=== PATIENT | female | born 1995 | race American Indian/Alaskan Native ===

== ENCOUNTER 2021-12-04 09:28 | Emergency (ER) | payer SELFPAY ==
[2021-12-04 11:11] LABS: Hematocrit 24.5 % (30.3-42.9); Hemoglobin 8.1 gm/dl (10.1-14.3); Mean Corpuscular HGB Conc 33 % (30-34); Mean Corpuscular Volume 109 fl (79-97); Platelet Count 340 K/mm3 (140-440); Red Blood Count 2.24 M/mm3 (3.65-5.03); Red Cell Distribution Width 17.7 % (13.2-15.2)
[2021-12-04 11:20] LABS: INR 0.9 (0.87-1.13)
[2021-12-04 11:21] LABS: Partial Thromboplastin Time 25.8 Sec. (24.2-36.6)
[2021-12-04] MEDS ORDERED: SODIUM CHLORIDE 0.9% 1000 ML 1,000 ML IV ONE (11:21)
[2021-12-04] MEDS ORDERED: MORPHINE 4 MG/1 ML INJ IV ONE (11:21)
[2021-12-04 11:30] LABS: Alanine Aminotransferase 14 units/L (7-56); Albumin 4.2 g/dL (3.9-5); Blood Urea Nitrogen 3 mg/dL (7-17); Calcium 9.2 mg/dL (8.4-10.2); Hemolysis Index 10
[2021-12-04 11:35] LABS: BUN/Creatinine Ratio 10
[2021-12-04 11:52] LABS: Basophils % (Manual) 0 % (0.0-1.8); Eosinophils % (Manual) 0 % (0.0-4.3); Total Cells Counted 100
[2021-12-04 11:53] LABS: Anisocytosis 1+; Ovalocytes Few; Platelet Estimate Consistent w Auto; Poikilocytosis 1+; Target Cells 1+; Tear Drop Cells Rare
--- NOTE | 2021-12-04 12:47 | XRay Report ---
XR chest routine 2V INDICATION / CLINICAL INFORMATION: Chest Pain COMPARISON: None available. FINDINGS: SUPPORT DEVICES: None. HEART / MEDIASTINUM: No significant abnormality. LUNGS / PLEURA: Bibasilar opacities. Costophrenic sulci are sharp. No pneumothorax. ADDITIONAL FINDINGS: Elevated left hemidiaphragm. No significant additional findings. IMPRESSION: 1. Bibasilar opacities likely subsegmental atelectasis or scarring. Signer Name: Dax Bhandari MD Signed: 12/04/2021 12:42 PM Workstation Name: [id number]
--- NOTE | 2021-12-04 13:16 | Emergency Department Report ---
ED General Adult HPI - General Chief complaint: Pain General Stated complaint: CHEST /SIDE PAIN Time Seen by Provider: 12/04/21 10:11 Source: patient Mode of arrival: Wheelchair Limitations: No Limitations - History of Present Illness Initial comments: This is a 26-year-old female nontoxic, well nourished in appearance, no acute signs of distress presents to the ED with c/o of generlized pains including chest x several day. Patient has history of sickle cell and stated these are the symptoms she gets during flareup. Patient denies any radiation of pain. Patient describes pain as aching. Patient denies any upper respiratory symptoms. Patient denies any shortness of breath, hemoptysis, fever, chills, nausea, vomiting, headache, stiff neck, numbness, tingling, abdominal pain. Patient denies pleuritic chest pain. Patient denies any recent travels or long car rides. Patient denies any recent surgeries or any sick contacts. Patient denies any drug allergies. -: days(s) Radiation: non-radiation Severity scale (0 -10): 8 Quality: aching Consistency: constant Improves with: none Worsens with: none Associated Symptoms: chest pain. denies: confusion, cough, diaphoresis, fever/chills, headaches, loss of appetite, malaise, nausea/vomiting, rash, seizure, shortness of breath, syncope, weakness Treatments Prior to Arrival: none - Related Data Previous Rx's Medication Instructions Recorded Last Taken Type Acetaminophen/Codeine [Tylenol 1 tab PO Q6H PRN #12 tab 12/04/21 Unknown Rx /Codeine # 3 tab] cephALEXin [Keflex] 500 mg PO Q6HR #28 capsule 12/04/21 Unknown Rx Allergies Allergy/AdvReac Type Severity Reaction Status Date / Time No Known Allergies Allergy Unverified 12/04/21 09:37 ED Review of Systems ROS: Stated complaint: CHEST /SIDE PAIN Other details as noted in HPI Constitutional: denies: chills, fever Eyes: denies: eye pain, eye discharge, vision change ENT: denies: ear pain, throat pain Respiratory: denies: cough, shortness of breath, wheezing Cardiovascular: denies: chest pain, palpitations Endocrine: no symptoms reported Gastrointestinal: denies: abdominal pain, nausea, diarrhea Genitourinary: denies: urgency, dysuria, discharge Musculoskeletal: arthralgia. denies: back pain, joint swelling, myalgia Skin: denies: rash, lesions Neurological: denies: headache, weakness, paresthesias Psychiatric: denies: anxiety, depression Hematological/Lymphatic: denies: easy bleeding, easy bruising ED Past Medical Hx - Past Medical History Previous Medical History?: Yes Hx Sickle Cell Disease: Yes - Medications Home Medications: Home Medications Medication Instructions Recorded Confirmed Last Taken Type Acetaminophen/Codeine [Tylenol 1 tab PO Q6H PRN #12 tab 12/04/21 Unknown Rx /Codeine # 3 tab] cephALEXin [Keflex] 500 mg PO Q6HR #28 capsule 12/04/21 Unknown Rx ED Physical Exam - General Limitations: No Limitations General appearance: alert, in no apparent distress - Head Head exam: Present: atraumatic, normocephalic - Eye Eye exam: Present: normal appearance - Neck Neck exam: Present: normal inspection, full ROM. Absent: lymphadenopathy - Respiratory Respiratory exam: Present: normal lung sounds bilaterally, chest wall tenderness. Absent: respiratory distress, wheezes, rales, rhonchi, stridor, accessory muscle use, decreased breath sounds, prolonged expiratory - Cardiovascular Cardiovascular Exam: Present: normal rhythm, normal heart sounds. Absent: irregular rhythm, systolic murmur, diastolic murmur, rubs, gallop - GI/Abdominal GI/Abdominal exam: Present: soft, normal bowel sounds. Absent: distended, tenderness, guarding, rebound, rigid - Extremities Exam Extremities exam: Present: normal inspection, full ROM, normal capillary refill. Absent: tenderness - Back Exam Back exam: Present: normal inspection, full ROM. Absent: tenderness, CVA tende rness (R), CVA tenderness (L), muscle spasm, paraspinal tenderness, vertebral tenderness, rash noted - Neurological Exam Neurological exam: Present: alert, oriented X3, normal gait - Psychiatric Psychiatric exam: Present: normal affect, normal mood - Skin Skin exam: Present: warm, dry, intact, normal color. Absent: rash ED Course Vital Signs 12/04/21 12/04/21 09:34 12:13 Temperature 98.7 F Pulse Rate 107 H Respiratory 16 20 Rate Blood Pressure 125/78 O2 Sat by Pulse 99 Oximetry - Reevaluation(s) Reevaluation #1: 12/04/21 13:16 Patient is speaking in full sentences with no signs of distress noted. - Consultations Consultation #1: 12/04/21 13:50 Patient has been consulted with Dr. Moran about patient history, physical exam, and labs/imaging results and agrees to ED plan of care and discharge plan of care. ED Medical Decision Making - Lab Data Result diagrams: 12/04/21 10:46 12/04/21 10:46 - EKG Data 12/04/21 14:03 Normal sinus rhythm at [address] or T wave abnormalities. Reviewed and signed by me. - Radiology Data [facility] [address] [place] [address] XRay Report Signed Patient: HASEEB LUGO MR#: [id number] : 1995 Acct:[id number] Age/Sex: 26 / F ADM Date: 12/04/21 Loc: ED Attending Dr: Ordering Physician: FELICITA MODI NP Date of Service: 12/04/21 Procedure(s): XR chest routine 2V Accession Number(s): [id number] cc: FELICITA MODI NP Fluoro Time In Minutes: XR chest routine 2V INDICATION / CLINICAL INFORMATION: Chest Pain COMPARISON: None available. FINDINGS: SUPPORT DEVICES: None. HEART / MEDIASTINUM: No significant abnormality. LUNGS / PLEURA: Bibasilar opacities. Costophrenic sulci are sharp. No pneumothorax. ADDITIONAL FINDINGS: Elevated left hemidiaphragm. No significant additional findings. IMPRESSION: 1. Bibasilar opacities likely subsegmental atelectasis or scarring. Signer Name: Dax Bhandari MD Signed: 12/04/2021 12:42 PM Workstation Name: [id number] Transcribed By: Dictated By: Dax Bhandari MD Electronically Authenticated By: Dax Bhandari MD Signed Date/Time: 12/04/21 1242 DD/ 1240 TD/TT: - Medical Decision Making This is a 26-year-old female that presents with UTI, chest pain unspecified and sickle cell crisis. Patient is stable and was examined by me. SAMEER and HEART score 0 pints. PERC score for DVT/SVT/PE 0 points. EKG normal sinus rhythm with no significant changes in ST. Chest xray dictated by the radiologist. PAtient is notified of the Xray report with no questions noted. Labs within normal limits. Negative troponin x2. Patient received treatment in the ED which stated symptoms are improving subsided. Patient was instructed to Follow-up with a primary care/territory sales consultant doctor in 2 days or if symptoms worsen and continue return to emergency room as soon as possible. At time of discharge, the patient does not seem toxic or ill in appearance. No acute signs of distress noted. Patient agrees to discharge treatment plan of care. No further questions noted by the patient. Critical care attestation.: If time is entered above; I have spent that time in minutes in the direct care of this critically ill patient, excluding procedure time. ED Disposition Clinical Impression: Sickle cell crisis UTI (urinary tract infection) Qualifiers: Urinary tract infection type: acute cystitis Hematuria presence: with hematuria Qualified Code(s): N30.01 - Acute cystitis with hematuria Chest pain, unspecified Qualifiers: Chest pain type: unspecified Qualified Code(s): R07.9 - Chest pain, unspecified Disposition: 01 HOME / SELF CARE / HOMELESS Is pt being admited?: No Does the pt Need Aspirin: No Condition: Stable Instructions: Nonspecific Chest Pain, Adult Additional Instructions: Follow-up with a primary care/territory sales consultant doctor in 2 days or if symptoms worsen and continue return to emergency room as soon as possible. Prescriptions: cephALEXin [Keflex] 500 mg PO Q6HR #28 capsule Acetaminophen/Codeine [Tylenol /Codeine # 3 tab] 1 tab PO Q6H PRN #12 tab PRN Reason: Pain , Severe (7-10) Referrals: KATHY LOW MD [Staff Physician] - 3-5 Days CHRIS NORRIS MD [Staff Physician] - 12/06/21 PRIMARY CAREMD [Primary Care Provider] - 12/06/21 Forms: Work/School Release Form(ED) Time of Disposition: 14:06
[2021-12-04 13:50] LABS: Bilirubin,Urine NEG (Negative); Blood,Urine LG (Negative); Color,Urine Yellow (Yellow); Mucus,Urine FEW /HPF; Protein,Urine <15 mg/dL mg/dL (Negative)
[2021-12-04 13:53] LABS: Amphetamine Screen,Urine Negative; Benzodiazepines Screen,Urine Negative; Cannabinoid Screen,Urine Negative; Cocaine Screen,Urine Negative; Methadone Screen,Urine Negative; Opiate Screen,Urine Negative
[2021-12-04 15:28] VITALS: BP 108/66
--- NOTE | 2021-12-05 10:24 | Electrocardiograph Report ---
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
== END 2021-12-04 15:27 | disposition home or self-care (01) ==
LOC: EDBD → ED 09:28
DX: D57.00 Hb-SS disease with crisis, unspecified (principal); N39.0 Urinary tract infection, site not specified; R07.89 Other chest pain; Z79.899 Other long term (current) drug therapy
CPT/HCPCS: 36415; 71046; 80053; 80307; 81001; 84484; 84703; 85007; 85025; 85045; 85610; 85730; 87086; 93005; 96361; 96374; 99284; J2270; J7030; Q0162